=== PATIENT | female | born 1930 | race Caucasian/White ===

== ENCOUNTER 2018-09-28 09:24 | Emergency (ER) | payer OTHER ==
[~2018-09-28] VITALS: Ht 165.1 cm; Wt 54.4 kg
[2018-09-28] MEDS ORDERED: cloNIDine HCL 0.1 MG TAB ONE (09:56)
[2018-09-28] MEDS ORDERED: cloNIDine HCL 0.1 MG TAB PO ONE ×3 (10:00→14:15)
[2018-09-28] MEDS ORDERED: MORPHINE SULF INJ 2 MG/ML SYRINGE 1ML IV ONE ×2 (11:00→16:00)
[2018-09-28] MEDS ORDERED: ONDANSETRON HCL 4 MG/2 ML VIAL IV ONE ×2 (11:00→16:00)
[2018-09-28 11:31] LABS: Albumin 3.6 g/dL (3.4-5.0); Basophils # (auto) 0.2 uL; Basophils % (auto) 3.2 % (0.0-2.0); Calcium 9.9 mg/dL (8.5-10.1); Eosinophils # (auto) 0.5 uL; Eosinophils % (auto) 6.2 % (0.0-7.0); Hematocrit 42.4 % (36.0-46.0); Hemoglobin 14.8 g/dL (12.2-16.2); Lymphocytes # (auto) 1.1 uL; Lymphocytes % (auto) 14.9 % (10.0-50.0); Mean Corpuscular Hgb Conc. 34.8 g/dL (32.0-36.0); Mean Corpuscular Volume 94.7 fL (80.0-100.0); Monocytes # (auto) 0.4 uL; Monocytes % (auto) 5.6 % (0.0-12.0); Neutrophils # (auto) 5.4 uL; Neutrophils % (auto) 70.1 % (37.0-80.0); Nucleated Red Blood Cells % 0.1 %; Platelet Count (auto) 307 10^3/uL (140-450); Red Blood Cells 4.48 10^6/uL (4.0-5.20); Red Cell Distribution Width 12.5 % (11.8-14.3); White Blood Cell 7.6 10^3/uL (4.4-10.8)
[2018-09-28 11:36] LABS: Bilirubin, Total 0.8 mg/dL (0.2-1.0); Total Protein 8.1 g/dL (6.4-8.2)
[2018-09-28 11:45] LABS: Potassium 2.5 mmol/L (3.5-5.1)
[2018-09-28] MEDS ORDERED: POTASSIUM CHL 20 Meq TABLET PO ONE (12:00)
[2018-09-28] MEDS ORDERED: ATENOLOL 25 MG TAB PO ONE (15:30)
[2018-09-28 15:49] VITALS: BP 190/89
== END 2018-09-28 16:18 | disposition short-term general hospital (02) ==
LOC: EDBD 09:24 → ER 09:31
DX: S22.088A Other fracture of T11-T12 vertebra, initial encounter for closed fracture (principal); G40.409 Other generalized epilepsy and epileptic syndromes, not intractable, without status epilepticus; I10 Essential (primary) hypertension; Z79.82 Long term (current) use of aspirin; W19.XXXA Unspecified fall, initial encounter; Y93.89 Activity, other specified; Y99.8 Other external cause status; Y92.89 Other specified places as the place of occurrence of the external cause
CPT/HCPCS: 36415; 72128; 72131; 80053; 85025; 93005; 96374; 96375; 96376; 99285; J2270; J2405; J7030